=== PATIENT | male | born 1940 | race Caucasian/White ===

== ENCOUNTER → 2017-01-17 | Outpatient (CLI) | payer MEDICARE, BC ==
[~2017-01-17] MED LIST: AMOXICILLIN 8751 TAB PO; ASPIRIN E.C. 8181 MG PO; BRILINTA90 MG PO; CHARCOAL; CRESTOR20 MG PO; LIPITOR 80MG80 MG PO; MIRALAX17 GM/DOSE PO; NEXIUM 20MG20 MG PO; NITROSTAT0.4 MG/TAB; NORCO 325 MG-7.1 TAB PO; OCUVITE1 TA1 PO; PROBIOTIC FORMU1 CAP PO; SEPTRA DS 8001 TAB PO; TEFLARO 60600 MG/VIA IV; VITAMIN D 400400 IU PO
[2017-01-17 13:27] LABS: HEMATOCRIT 47.2 % (42.0-52.0); HEMOGLOBIN 15.5 g/dl (13.5-18.0); MEAN CELL VOLUME 92 fl (80.0-100.0); MEAN CORPUSCULAR HEMOGLOBIN 30 pg (27.0-31.0); MEAN CORPUSCULAR HGB CONC 33 g/dl (33.0-37.0); MEAN PLATELET VOLUME 11.1 fl (7.4-10.4); PLATELET COUNT 152 K/mm3 (130-400); RED BLOOD COUNT 5.11 M/mm3 (4.20-5.60); REDCELL DISTRIBUTION WIDTH-CV 13.2 % (11.5-14.5); WHITE BLOOD COUNT 6.2 K/mm3 (4.8-10.8)
[2017-01-17 14:44] LABS: ERYTHROCYTE SEDIMENTATION RATE 18 mm/hr (0-30)
== END ==
LOC: COL.LAB 12:58
PROVIDERS: Orthopaedic Surgery
DX: R94.6 Abnormal results of thyroid function studies (principal); M25.512 Pain in left shoulder

== ENCOUNTER → 2017-01-24 | Outpatient (CLI) | payer MEDICARE, BC | LOC: COL.RAD 09:17 | DX: M75.122 Complete rotator cuff tear or rupture of left shoulder, not specified as traumatic (principal); M19.012 Primary osteoarthritis, left shoulder; Z98.890 Other specified postprocedural states ==

== ENCOUNTER 2017-04-12 07:46 | Day surgery (SDC) | payer MEDICARE, BC ==
[2017-04-12] VITALS (473 sets, daily range): BP systolic 115–157; BP diastolic 65–104; PULSE 47–66; TEMP 96–98; O2SAT 55–100
[~2017-04-12] VITALS: Ht 185.4 cm; Wt 104.5 kg
[~2017-04-12 07:46] MED LIST changes: -ASPIRIN E.C. 8181 MG PO; -BRILINTA90 MG PO; -CHARCOAL; -CRESTOR20 MG PO; -LIPITOR 80MG80 MG PO; -NEXIUM 20MG20 MG PO; -NITROSTAT0.4 MG/TAB
[2017-04-12] MEDS ORDERED: NEXIUM 20MG20 MG PO (08:11)
[2017-04-12] MEDS ORDERED: CHARCOAL (08:13)
[2017-04-12 08:14] LABS: HEMATOCRIT 40.7 % (42.0-52.0); HEMOGLOBIN 13.6 g/dl (13.5-18.0); MEAN CELL VOLUME 91 fl (80.0-100.0); MEAN CORPUSCULAR HEMOGLOBIN 30 pg (27.0-31.0); MEAN CORPUSCULAR HGB CONC 33 g/dl (33.0-37.0); MEAN PLATELET VOLUME 11.9 fl (7.4-10.4); PLATELET COUNT 125 K/mm3 (130-400); RED BLOOD COUNT 4.49 M/mm3 (4.20-5.60); REDCELL DISTRIBUTION WIDTH-CV 13.5 % (11.5-14.5); WHITE BLOOD COUNT 4.9 K/mm3 (4.8-10.8)
[2017-04-12 08:18] LABS: INR 1.2 (0.8-3.0)
[2017-04-12 08:24] LABS: CALCIUM 9.3 mg/dL (8.4-10.2); CREATININE, serum 1.06 mg/dL (0.66-1.25); POTASSIUM 3.8 mmol/L (3.4-5.0)
[2017-04-13] VITALS: BP 131/80; PULSE 47; TEMP 97.5
[2017-04-13 04:00] VITALS: BP 141/82; PULSE 54; PULSE 57; TEMP 97.5
[2017-04-13 05:45] LABS: HEMATOCRIT 39.1 % (42.0-52.0); MEAN CELL VOLUME 91 fl (80.0-100.0); MEAN CORPUSCULAR HEMOGLOBIN 30 pg (27.0-31.0); MEAN CORPUSCULAR HGB CONC 33 g/dl (33.0-37.0); MEAN PLATELET VOLUME 11.6 fl (7.4-10.4); PLATELET COUNT 112 K/mm3 (130-400); REDCELL DISTRIBUTION WIDTH-CV 13.6 % (11.5-14.5)
[2017-04-13 06:33] LABS: CALCIUM 8.8 mg/dL (8.4-10.2); CREATININE, serum 0.94 mg/dL (0.66-1.25); POTASSIUM 3.8 mmol/L (3.4-5.0)
[2017-04-13] MEDS ORDERED: BRILINTA90 MG PO (08:47)
[2017-04-13] MEDS ORDERED: LIPITOR 80MG80 MG PO (08:48)
[2017-04-13] MEDS ORDERED: NITROSTAT0.4 MG/TAB (08:49)
[2017-04-13] MEDS ORDERED: ASPIRIN E.C. 8181 MG PO (08:49)
[2017-04-13 09:00] VITALS: BP 129/84; PULSE 54
[2017-04-13] MEDS ORDERED: CRESTOR20 MG PO (09:37)
== END 2017-04-13 10:45 | disposition home or self-care (01) ==
LOC: COL.CAR 07:46 → ICU 11:36 → COL.CAR 04-13 10:45
PROVIDERS: Internal Medicine Interventional Cardiology
DX: I25.10 Atherosclerotic heart disease of native coronary artery without angina pectoris (principal); R00.1 Bradycardia, unspecified; I49.3 Ventricular premature depolarization; I51.7 Cardiomegaly; I51.9 Heart disease, unspecified; K21.9 Gastro-esophageal reflux disease without esophagitis; Z80.9 Family history of malignant neoplasm, unspecified
CPT/HCPCS: OP; C1725; C1760; C1769; C1874; C1887; C9600; J0583; J2250; J3010; Q9967

== ENCOUNTER 2018-05-15 08:38 | Inpatient (IN) | payer MEDICARE, BC ==
[~2018-05-15] VITALS: Ht 185.4 cm; Wt 96.8 kg
[~2018-05-15 08:38] MED LIST changes: +ASPIRIN E.C. 8181 MG PO; +BRILINTA90 MG PO; +CHARCOAL; +CRESTOR5 MG PO; +LIPITOR 80MG80 MG PO; +NEXIUM 20MG20 MG PO; +NITROSTAT0.4 MG/TAB SL
[2018-07-15] MEDS ORDERED: FLOMAX 0.40.4 MG/CAP PO (14:58)
[2018-07-16] VITALS (14 sets, daily range): BP systolic 108–125; BP diastolic 43–72; PULSE 45–64; TEMP 96.8–98.5
[2018-07-17 03:39] VITALS: BP 115/55; PULSE 55; TEMP 97.9
[2018-07-17 07:13] LABS: HEMOGLOBIN 12.1 g/dl (13.5-18.0)
[2018-07-17 07:14] LABS: HEMATOCRIT 36.8 % (42.0-52.0)
[2018-07-17 07:59] VITALS: BP 127/65; PULSE 64
[2018-07-17 11:27] VITALS: BP 114/57; PULSE 61; TEMP 98.1
[2018-07-17 16:00] VITALS: BP 116/60; PULSE 63; TEMP 97.4
[2018-07-17 20:01] VITALS: BP 114/63; PULSE 59; TEMP 97.6
[2018-07-18 04:12] VITALS: BP 119/66; PULSE 57; TEMP 98.3
[2018-07-18] MEDS ORDERED: ASPI325T6 PO (06:51)
[2018-07-18] MEDS ORDERED: NORCO 325 MG-7.1 TAB PO (06:51)
[2018-07-18] MEDS ORDERED: ROXICODONE 55 MG/TAB PO (06:52)
[2018-07-18 07:52] VITALS: BP 123/56; BP 179/71; PULSE 66; PULSE 88; TEMP 97.7; TEMP 98.3
== END 2018-07-18 11:25 | disposition home or self-care (01) | DRG 470 ==
LOC: SURG 07-16 05:04 → JCC 07-16 07:30 → SURG 07-18 11:25
PROVIDERS: Orthopaedic Surgery
PROC: 0SRD0J9 Replacement of Left Knee Joint with Synthetic Substitute, Cemented, Open Approach (ICD-10-PCS; principal; 2018-07-16 07:30)
DX: M17.12 Unilateral primary osteoarthritis, left knee (principal); E78.5 Hyperlipidemia, unspecified; I25.10 Atherosclerotic heart disease of native coronary artery without angina pectoris
CPT/HCPCS: A4314; A9284; C1713; C1776; J0690; J1100; J2250; J2704; J3370; J7050; J7120

== ENCOUNTER → 2018-07-07 | Outpatient (CLI) | payer MEDICARE, BC ==
[~2018-07-07] MED LIST changes: +NITROSTAT0.4 MG/TAB; -NITROSTAT0.4 MG/TAB SL
[2018-07-07 12:52] LABS: HIV 1/2 Antibodies Non-Reactive; HIV-1p24 Antigen Non-Reactive
== END ==
LOC: COL.LAB 10:59
PROVIDERS: Orthopaedic Surgery
DX: Z01.812 Encounter for preprocedural laboratory examination (principal); M17.12 Unilateral primary osteoarthritis, left knee